=== PATIENT | female | born 1945 | race Asian ===

== ENCOUNTER 2016-08-20 14:10 | Inpatient (IN) | payer MEDICARE, MEDICAID ==
[~2016-08-20] VITALS: Ht 154.9 cm; Wt 49.9 kg
[2016-08-20 13:59] VITALS: BP 145/75
[2016-08-20] MEDS ORDERED: Norco 5mg/325mg tab ORAL ONE (15:00)
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
--- NOTE | 2016-08-20 16:27 | Diagnostic Imaging Report ---
Indications: Cephalgia Technique: Continuous helical CT imaging of the brain was performed with nonionic exposure control on a Siemens sensation [address] scanner. Axial and coronal images were reconstructed at 5 mm slice thickness and interval. CTDI volume(s): 70 mGy Total DLP: 1372 mGy-cm Findings: Comparison: None Image degraded by motion. Mild low attenuation is present in the bilateral periventricular white matter. Ventricles, cisterns, and sulci are mildly, diffusely prominent. No evidence of mass or hemorrhage, mass effect, midline shift, hydrocephalus, or increased intracranial pressure. Bone window images are unremarkable. Visualized paranasal sinuses and mastoid air cells are clear. IMPRESSION: No evidence of acute intracranial pathology Bilateral cerebral periventricular and deepwhite matter low attenuation, nonspecific, likely chronic microvascular ischemic in nature. Mild, age-appropriate atrophy. The CT scanner at [facility] is accredited by the [employer] and the scans are performed using protocols designed to limit radiation exposure to as low as reasonably achievable to attain images of sufficient resolution adequate for diagnostic evaluation.
[2016-08-20 16:34] VITALS: BP 129/75
[2016-08-20] MEDS ORDERED: UNOBMED (16:34)
[2016-08-20 16:39] LABS: BASOPHILS % (AUTO) 0.8 % (0.0-2.0); EOSINOPHILS % (AUTO) 0.3 % (0.0-3.0); LYMPHOCYTES % (AUTO) 14.4 % (20.0-45.0); MEAN CORPUSCULAR HEMOGLOBIN 31.1 PG (27.0-31.0); MEAN CORPUSCULAR HGB CONC 33.1 G/DL (32.0-36.0); MEAN CORPUSCULAR VOLUME 94 FL (80-99); MEAN PLATELET VOLUME 8.3 FL (6.5-10.1); MONOCYTES % (AUTO) 4.6 % (1.0-10.0); NEUTROPHILS % (AUTO) 79.9 % (45.0-75.0); PLATELET COUNT 137 K/UL (150-450); RED BLOOD COUNT 4.17 M/UL (4.20-5.40); RED CELL DISTRIBUTION WIDTH 12.7 % (11.6-14.8); WHITE BLOOD COUNT 11.4 K/UL (4.8-10.8)
[2016-08-20 16:54] LABS: ALANINE AMINOTRANSFERASE 15 U/L (3-33); ALBUMIN/GLOBULIN RATIO 1.4 (1.0-2.7); ANION GAP 16 (5-15); ASPARTATE AMINO TRANSFERASE 20 U/L (5-40); CALCIUM 8.9 mg/dL (8.6-10.2); CARBON DIOXIDE 25 mEQ/L (20-30); CHLORIDE 100 mEQ/L (98-107); CREATININE 0.6 mg/dL (0.5-0.9); HEMOLYSIS 7; POTASSIUM 3.5 mEQ/L (3.4-4.9); SODIUM 141 mEQ/L (135-145)
[2016-08-20] MEDS ORDERED: OMEGA-3 ACID ETH1 GM PO (17:21)
[2016-08-20] MEDS ORDERED: AMLODIPINE BESYL5 MG ORAL (17:21)
[2016-08-20] MEDS ORDERED: NEXIUM40 MG ORAL (17:21)
[2016-08-20] MEDS ORDERED: SERTRALINE HCL25 MG ORAL (17:21)
[2016-08-20] MEDS ORDERED: RESTASIS1 EACH BOTH EYES (17:21)
[2016-08-20] MEDS ORDERED: VOLTAREN100 G1 TP (17:21)
[2016-08-20] MEDS ORDERED: CELEBREX200 MG ORAL (17:21)
[2016-08-20] MEDS ORDERED: Zolpidem 5mg tab ORAL PRN (20:30)
[2016-08-20] MEDS ORDERED: Morphine Sulfate 2mg/ml Inj IVP PRN (20:30)
[2016-08-20] MEDS ORDERED: LORazepam Inj 2mg/ml 1ml IV PRN (20:30)
[2016-08-20] MEDS ORDERED: Mylanta II UD 30ml ORAL PRN (20:30)
[2016-08-20] MEDS ORDERED: Miralax 17gm pkt ORAL PRN (20:30)
[2016-08-20] MEDS: Heparin 5000 units/ml inj SUBQ SCH (21:00)
[2016-08-20 21:31] VITALS: BP 116/69
[2016-08-20] MEDS: Norco 5mg/325mg tab ORAL PRN (22:33)
[2016-08-21 05:00] VITALS: BP 127/76
[2016-08-21 07:19] LABS: ALANINE AMINOTRANSFERASE 13 U/L (3-33); ALBUMIN/GLOBULIN RATIO 1.3 (1.0-2.7); ANION GAP 15 (5-15); ASPARTATE AMINO TRANSFERASE 16 U/L (5-40); CALCIUM 8.9 mg/dL (8.6-10.2); CARBON DIOXIDE 27 mEQ/L (20-30); CHLORIDE 101 mEQ/L (98-107); CHOLESTEROL 202 mg/dL (< 200); CHOLESTEROL/HDL RATIO 2.7 (3.3-4.4); CREATININE 0.6 mg/dL (0.5-0.9); HEMOLYSIS 4; LDL CHOLESTEROL (CALC.) 115 mg/dL (60-99); POTASSIUM 3.7 mEQ/L (3.4-4.9); SODIUM 143 mEQ/L (135-145); TOTAL PROTEIN 6.8 g/dL (6.6-8.7)
[2016-08-21 07:20] LABS: BASOPHILS % (AUTO) 1.6 % (0.0-2.0); EOSINOPHILS % (AUTO) 0.5 % (0.0-3.0); LYMPHOCYTES % (AUTO) 26.7 % (20.0-45.0); MEAN CORPUSCULAR HEMOGLOBIN 31.1 PG (27.0-31.0); MEAN CORPUSCULAR VOLUME 95 FL (80-99); MEAN PLATELET VOLUME 8.6 FL (6.5-10.1); MONOCYTES % (AUTO) 7.3 % (1.0-10.0); PLATELET COUNT 127 K/UL (150-450); RED BLOOD COUNT 3.73 M/UL (4.20-5.40); WHITE BLOOD COUNT 7.4 K/UL (4.8-10.8)
[2016-08-21 07:31] LABS: BILIRUBIN,DIRECT 0.2 mg/dL (0.1-0.3)
[2016-08-21] MEDS: Heparin 5000 units/ml inj SUBQ SCH ×2 (08:22→20:43)
[2016-08-21 08:29] VITALS: BP 108/60
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
[2016-08-21 11:40] VITALS: BP 116/72
[2016-08-21] MEDS: Norco 5mg/325mg tab ORAL PRN ×2 (15:27→21:21)
[2016-08-21 16:23] VITALS: BP 113/71
[2016-08-21 20:00] VITALS: BP 126/73
--- NOTE | 2016-08-21 22:45 | Consultation ---
DATE OF CONSULTATION: 08/20/2016 CONSULTING PHYSICIAN: Liang Yancey M.D. REFERRING PHYSICIAN: Erasmo Valverde M.D. HISTORY OF PRESENT ILLNESS: The patient is a pleasant, Sami speaking female who sustained a mechanical fall. She has pain in the left ankle and left hip. She was brought to the emergency room where imaging studies showed a fracture of the pelvis as well as the left ankle. Orthopedic consultation was obtained for the care and recommendation. The patient does have pain in the left ankle as well as left hip. She denies any numbness or tingling. No shortness of breath or chest pain. PAST MEDICAL HISTORY: Reviewed from the intake chart. PAST SURGICAL HISTORY: Reviewed from the intake chart. MEDICATIONS: Reviewed from the intake chart. PHYSICAL EXAMINATION: The patient is a pleasant female. She is resting comfortably in bed. She has pain along the lateral malleolus of the left ankle. Neurovascular is normal. No significant ecchymosis. Mild effusion. Left hip examination shows pain with internal and external rotation, to palpation along the pubic rami anteriorly as well as along the posterior SI joint. DIAGNOSTIC DATA: Three views left ankle reviewed and showed what appears to be lateral malleolus fracture. A CT scan of the left hip is reviewed and showed what appears to be a pelvic ring fracture involving the superior and inferior pubic rami on the left with sacral impaction of the left SI joint. ASSESSMENT: 1. Lateral compression pelvic ring fracture grade 1. 2. Lateral malleolus fracture, nondisplaced. DISCUSSION: At this point, both these injuries are stable injuries that do not need surgery. In terms of the left ankle, we are going to order a CAM walker boot. In terms of physical therapy, she will be weightbearing as tolerated on the left ankle as well as left hip. I discussed with her that it takes at least 12 weeks for the pelvis fracture to heal. Within the next three to six weeks, her left ankle will heal pretty good, at which point they can discontinue the boot. She will follow up as an outpatient. We will order the boot and have her begin physical therapy. Liang Yancey M.D. DR: MIRIAN JOB#: [id number] CC: RONALD
--- NOTE | 2016-08-21 23:30 | Progress Note ---
DATE: 08/21/2016 SUBJECTIVE: No issues overnight. The patient is resting comfortably. She is tolerating p.o. OBJECTIVE: Examination shows pain over left pubic rami area. There is pain with internal and external rotation. Neurovascular is normal. Left ankle examination shows swelling and pain over lateral mallelous. Dorsalis pedis +2. ASSESSMENT: 1. Lateral compression grade 1 pelvic ring fracture. 2. Nondisplaced lateral malleolus fracture. DISCUSSION: At this point, she still has not gotten the cam boot. I am going to follow up with the nursing staff to get the CAM walker boot. Once she gets the boot, she can begin physical therapy, weightbearing as tolerated. She does have flight of stairs to climb at home and therefore before she gets discharged home she does need to be cleared by physical therapy to climb stairs, alternatively if she is having issues with ambulation then she needs to potentially go to [facility] until she is more stable. FOLLOWUP: 1. The patient to follow up in 3 to 4 weeks as an outpatient. 2. DVT prophylaxis. Based on how she is ambulating, she may or may not benefit from formal DVT prophylaxis. In the meantime, instructed her on signs and symptoms to monitor for DVT. I have recommended to continue to actively move her right leg to keep the circulation going. Liang Yancey M.D. DR: Keisha JOB#: [id number] CC: RONALD
[2016-08-22] VITALS: BP 123/76
[2016-08-22 04:00] VITALS: BP 121/72
[2016-08-22 06:38] LABS: BASOPHILS % (AUTO) 1.1 % (0.0-2.0); EOSINOPHILS % (AUTO) 2.2 % (0.0-3.0); LYMPHOCYTES % (AUTO) 27.6 % (20.0-45.0); MEAN CORPUSCULAR HEMOGLOBIN 32.3 PG (27.0-31.0); MEAN CORPUSCULAR HGB CONC 34.3 G/DL (32.0-36.0); MEAN CORPUSCULAR VOLUME 94 FL (80-99); MEAN PLATELET VOLUME 8.4 FL (6.5-10.1); MONOCYTES % (AUTO) 7.3 % (1.0-10.0); NEUTROPHILS % (AUTO) 61.8 % (45.0-75.0); PLATELET COUNT 107 K/UL (150-450); RED BLOOD COUNT 3.68 M/UL (4.20-5.40); RED CELL DISTRIBUTION WIDTH 12.8 % (11.6-14.8); WHITE BLOOD COUNT 7.7 K/UL (4.8-10.8)
[2016-08-22 06:53] LABS: ANION GAP 13 (5-15); CALCIUM 8.5 mg/dL (8.6-10.2); CARBON DIOXIDE 26 mEQ/L (20-30); CHLORIDE 101 mEQ/L (98-107); CREATININE 0.6 mg/dL (0.5-0.9); HEMOLYSIS 4; POTASSIUM 3.7 mEQ/L (3.4-4.9); SODIUM 140 mEQ/L (135-145)
[2016-08-22] MEDS: Norco 5mg/325mg tab ORAL PRN ×2 (07:19→14:43)
[2016-08-22 08:27] VITALS: BP 107/73
[2016-08-22] MEDS: Sertraline 50mg tab ORAL SCH (08:49)
[2016-08-22] MEDS: Heparin 5000 units/ml inj SUBQ SCH ×2 (09:00→21:00)
[2016-08-22] MEDS: Morphine Sulfate 2mg/ml Inj IVP PRN ×2 (11:38→21:41)
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
[2016-08-22 12:37] VITALS: BP 111/64
[2016-08-22 15:55] VITALS: BP 114/69
[2016-08-22 20:00] VITALS: BP 124/76
[2016-08-23] VITALS: BP 124/73
[2016-08-23 04:00] VITALS: BP 137/75
[2016-08-23 08:00] VITALS: BP 131/77
[2016-08-23 08:19] LABS: FREE TRIIODOTHYRONINE 2.7 pg/mL (2.0-4.4)
[2016-08-23] MEDS: Heparin 5000 units/ml inj SUBQ SCH ×2 (09:00→21:00)
[2016-08-23] MEDS: Morphine Sulfate 2mg/ml Inj IVP PRN ×3 (09:09→18:08)
[2016-08-23] MEDS: Sertraline 50mg tab ORAL SCH (09:09)
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
[2016-08-23 12:00] VITALS: BP 116/64
[2016-08-23 16:05] VITALS: BP 126/85
[2016-08-23 20:00] VITALS: BP 116/69
[2016-08-24] VITALS: BP 114/70
[2016-08-24 04:00] VITALS: BP 119/74
[2016-08-24] MEDS: Sertraline 50mg tab ORAL SCH (08:22)
[2016-08-24] MEDS: Heparin 5000 units/ml inj SUBQ SCH ×2 (08:22→21:00)
[2016-08-24 08:29] VITALS: BP 125/76
[2016-08-24 11:41] VITALS: BP 119/71
[2016-08-24] MEDS: Morphine Sulfate 2mg/ml Inj IVP PRN ×2 (13:20→13:59)
[2016-08-24 15:47] VITALS: BP 114/72
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
[2016-08-24 20:00] VITALS: BP 116/67
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
[2016-08-25] VITALS: BP 116/70
[2016-08-25 04:00] VITALS: BP 130/77
[2016-08-25] MEDS: Morphine Sulfate 2mg/ml Inj IVP PRN (07:31)
[2016-08-25 08:00] VITALS: BP 126/68
[2016-08-25] MEDS: Sertraline 50mg tab ORAL SCH (08:27)
[2016-08-25] MEDS: Heparin 5000 units/ml inj SUBQ SCH (08:29)
[2016-08-25 12:00] VITALS: BP 124/73
[2016-08-25 16:14] VITALS: BP 124/74
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
[2016-08-27 09:57] LABS: VITAMIN D 25-OH TOTAL 44 ng/mL (.)
--- NOTE | 2016-08-27 10:14 | Discharge Summary ---
Discharge Summary Hospital Course Date of Admission Aug 20, 2016 at 16:20 Date of Discharge Aug 25, 2016 at 17:00 Admitting Diagnosis hip fx, ankle fx HPI Guy Fuentes is a 70 year old female who was admitted on Aug 20, 2016 at 16:20 for Hip Fracture,Ankle Fracture Hospital Course [id number] Discharge Discharge Disposition Patient was discharged to SNF/Subacute Facility(03) Discharge Diagnoses: Francoise Wright NP Aug 27, 2016 10:14
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
== END 2016-08-25 17:00 | DRG 341 ==
LOC: EDBD 14:10 → EMR 14:20 → 4E 16:20 → EDBEDREQ 16:43
DX: S32.592A Other specified fracture of left pubis, initial encounter for closed fracture (principal); I10 Essential (primary) hypertension; S82.65XA Nondisplaced fracture of lateral malleolus of left fibula, initial encounter for closed fracture; S39.92XA Unspecified injury of lower back, initial encounter; V43.52XA Car driver injured in collision with other type car in traffic accident, initial encounter; Y92.410 Unspecified street and highway as the place of occurrence of the external cause; M81.0 Age-related osteoporosis without current pathological fracture
CPT/HCPCS: 36415; 70450; 72192; 80048; 80053; 80061; 82248; 82306; 84439; 84443; 84481; 85025; 93970